=== PATIENT | female | born 1945 | race Two or more races ===

== ENCOUNTER 2016-10-21 13:45 | Outpatient (CLI) | payer MEDICARE, OTHER ==
[~2016-10-21 13:45] MED LIST: ACTOS15 MG PO; ATORVASTATIN CA10 MG PO; COZAAR25 MG PO; EVISTA60 MG PO; LANTUS100 UNIT/2 SQ; LEXAPRO20 MG PO; NOVOLOG100 UNIT/3 SUBQ; SYNTHROID25 MCG PO; TRAZODONE HCL50 MG PO; VICTOZA 2-0.6 MG/0.1 SUBQ; VICTOZA SUBQ; VITAMIN D250000 UNI1 ORAL; VITAMIND PO
[2016-10-21] MEDS ORDERED: NATEGLINIDE120 MG PO (14:58)
[2016-10-21] MEDS ORDERED: INVOKANA100 MG PO (14:58)
[2016-10-21] MEDS ORDERED: LEXAPRO10 MG ORAL (14:58)
[2016-10-21] MEDS ORDERED: METOPROLOL SUCC50 MG ORAL (14:58)
[2016-10-21] MEDS ORDERED: PRAVACHOL40 MG ORAL (14:58)
[2016-10-21] MEDS ORDERED: COQ-10100 M1 PO (14:58)
[2016-10-21] MEDS ORDERED: PAZEO2.5 ML OP (14:58)
[2016-10-21] MEDS ORDERED: EVISTA60 MG ORAL (14:58)
[2016-10-21] MEDS ORDERED: SYNTHROID125 MCG ORAL (14:58)
[2016-10-21] MEDS ORDERED: NOVOLOG100 UNIT/3 SUBQ (14:58)
[2016-10-21] MEDS ORDERED: VOLTAREN100 G1 TP (14:58)
[2016-10-21] MEDS ORDERED: DEXILANT60 MG ORAL (14:58)
[2016-10-21] MEDS ORDERED: LANTUS SOL100 UNIT/1 SUBQ (14:58)
[2016-10-21] MEDS ORDERED: ACETAMINOPHEN325 M1 ORAL (14:58)
[2016-10-21] MEDS ORDERED: TRAZODONE HCL100 MG ORAL (14:58)
--- NOTE | 2016-10-21 15:02 | GI Initial Consult Note ---
MiguelNancy Helio N.PDylan 10/21/16 1502: History of Present Illness General Date patient seen: October 21, 2016 Time patient seen: 14:00 Referring physician: AMALIA Reason for Consultation: ABDOMINAL PAIN Present Illness HPI 71 year old female patient referred by Dr. Chahal for evaluation of abdominal pain and GERD. The patient was recently discharged from [facility] last week for hematemesis and acute onset of chest pain. Her work up with a CT scan noted to have a very large intraluminal esophageal mass which was found to be a large hematoma extending from the upper esophageal sphincter all the way down tot he lower esophageal sphincter. The patient was placed on TPN and eventually the hematoma resolved on its own verified by EGD. Biopsy shows the presence of H. Pylori and we are unsure if it has been treated. Home Meds Reported Medications Escitalopram Oxalate (LEXAPRO) 5 Mg/5 Ml Solution, 15 MG ORAL DAILY, ML 10/21/16 Ubidecarenone (COQ-10) 100 Mg Capsule, 200 MG PO, CAP 10/21/16 Trazodone Hcl* (DESYREL*) 100 Mg Tablet, 100 MG ORAL BEDTIME, TAB 10/21/16 Pravastatin Sodium (PRAVACHOL) 40 Mg Tablet, 40 MG ORAL BEDTIME, TAB 10/21/16 Olopatadine HCl (Pazeo) 2.5 Ml Drops, 2.5 ML OP, ML 10/21/16 Nateglinide (NATEGLINIDE) 120 Mg Tablet, 120 MG PO, TAB 10/21/16 Metoprolol Succinate* (METOPROLOL SUCCINATE*) 50 Mg Tab.er.24h, 50 MG ORAL DAILY , TAB 10/21/16 Levothyroxine Sodium* (SYNTHROID*) 125 Mcg Tablet, 137 MCG ORAL DAILY, TAB Take in the morning on an empty stomach, at least 30 minutes before food. 10/21/16 Insulin Aspart* (NOVOLOG*) 100 Unit/1 Ml Insuln.pen, 0 SUBQ, #1 EA 0 Refills 10/21/16 Diclofenac Sodium (VOLTAREN) 100 Gm Gel..gram., 100 GM TP, GM 10/21/16 Dexlansoprazole (Dexilant) 60 Mg [place]., 60 MG ORAL DAILY, CAP 10/21/16 Canagliflozin (INVOKANA) 100 Mg Tablet, 100 MG PO, TAB 10/21/16 Acetaminophen* (ACETAMINOPHEN 325MG TABLET*) 325 Mg Tablet, 325 MG ORAL Q4H Y, TAB 10/21/16 Insulin Glargine,Hum.rec.anlog (LANTUS) 100 Unit/1 Ml Cartridge, 12 UNIT SQ QHS 08/18/12 Insulin Aspart* (NOVOLOG*) 100 Unit/1 Ml Insuln.pen, 6 SUBQ BID, UNITS Inject subcutaneously per sliding scale order 08/18/12 Discontinued Reported Medications Raloxifene Hcl* (EVISTA*) 60 Mg Tablet, 60 MG ORAL DAILY, TAB 10/21/16 Insulin Glargine (LANTUS) 100 Unit/1 Ml Insuln.pen, 0 SUBQ BEDTIME, #1 EA 0 Refills 10/21/16 Escitalopram Oxalate* (LEXAPRO*) 10 Mg Tablet, 15 MG ORAL DAILY, TAB 10/21/16 Ergocalciferol (Vitamin D2)* (VITAMIN D*) 50,000 Unit Capsule, 36812 UNIT ORAL QWEEK 08/18/12 Liraglutide (VICTOZA 2-MADISYN) 0.6 Mg/0.1 Ml Pen.injctr, 1.8 MG SUBQ DAILY 08/18/12 Atorvastatin Calcium* (LIPITOR*) 10 Mg Tablet, 10 MG PO QHS 08/18/12 Trazodone Hcl* (DESYREL*) 50 Mg Tablet, 50 MG PO QHS 08/18/12 Escitalopram Oxalate* (LEXAPRO*) 20 Mg Tablet, 20 MG PO DAILY, #10 TAB Take 1 tablet by mouth every day. 08/18/12 Raloxifene Hcl* (EVISTA*) 60 Mg Tablet, 60 MG PO DAILY 08/18/12 Med list reviewed/reconciled: Yes Allergies: Coded Allergies: No Known Allergies (Unverified , 08/17/12) Patient History Family History Narrative PAST MEDICAL HISTORY: The patient's past medical history and review of systems are remarkable for insulin dependent diabetes mellitus, osteoporosis, hypothyroidism and depression. No history of hypertension, stroke, seizures or renal failure. No GI bleeding, no hepatitis PAST SURGICAL HISTORY: Appendectomy, right eye cataract and hysterectomy. Social History: Denies: alcohol use, drug use, other, smoking Review of Systems All Other Systems: negative except mentioned in HPI Physical Exam T 97.6 BP 108/54 P 75 99 RA WT 149.3 lbs (states 10 lbs loss during previous hospital admission, has gained now) Sp02 EP Interpretation: reviewed General Appearance: well appearing, no apparent distress, alert Head: normocephalic EENT: normal ENT inspection Neck: full range of motion Respiratory: normal breath sounds, no respiratory distress Cardiovascular: normal rate Gastrointestinal: normal inspection, non tender, soft Genitourinary: no CVA tenderness Musculoskeletal: back normal Neurologic: normal inspection, alert, oriented x3, responsive Psychiatric: normal inspection, judgement/insight normal, memory normal Skin: normal inspection, normal color, no rash, warm/dry Lymphatic: normal inspection, no adenopathy GI: Plan Problems: (1) Intramural esophageal hematoma (2) H. pylori infection (3) GERD (gastroesophageal reflux disease) (4) Abdominal pain Plan s/p EGD @ [facility] >> resolved esophageal hematoma ordered Breath Test rx low dose erythromycin RTC x 2 weeks, patient will contact refused colonoscopy at this time Seen with Dr. Flores. Thank you for referring this patient. AMILCAR FLORES 10/22/16 1044: History of Present Illness Present Illness Home Meds Reported Medications Escitalopram Oxalate (LEXAPRO) 5 Mg/5 Ml Solution, 15 MG ORAL DAILY, ML 10/21/16 Ubidecarenone (COQ-10) 100 Mg Capsule, 200 MG PO, CAP 10/21/16 Trazodone Hcl* (DESYREL*) 100 Mg Tablet, 100 MG ORAL BEDTIME, TAB 10/21/16 Pravastatin Sodium (PRAVACHOL) 40 Mg Tablet, 40 MG ORAL BEDTIME, TAB 10/21/16 Olopatadine HCl (Pazeo) 2.5 Ml Drops, 2.5 ML OP, ML 10/21/16 Nateglinide (NATEGLINIDE) 120 Mg Tablet, 120 MG PO, TAB 10/21/16 Metoprolol Succinate* (METOPROLOL SUCCINATE*) 50 Mg Tab.er.24h, 50 MG ORAL DAILY , TAB 10/21/16 Levothyroxine Sodium* (SYNTHROID*) 125 Mcg Tablet, 137 MCG ORAL DAILY, TAB Take in the morning on an empty stomach, at least 30 minutes before food. 10/21/16 Insulin Aspart* (NOVOLOG*) 100 Unit/1 Ml Insuln.pen, 0 SUBQ, #1 EA 0 Refills 10/21/16 Diclofenac Sodium (VOLTAREN) 100 Gm Gel..gram., 100 GM TP, GM 10/21/16 Dexlansoprazole (Dexilant) 60 Mg Cap.bp, 60 MG ORAL DAILY, CAP 10/21/16 Canagliflozin (INVOKANA) 100 Mg Tablet, 100 MG PO, TAB 10/21/16 Acetaminophen* (ACETAMINOPHEN 325MG TABLET*) 325 Mg Tablet, 325 MG ORAL Q4H Y, TAB 10/21/16 Insulin Glargine,Hum.rec.anlog (LANTUS) 100 Unit/1 Ml Cartridge, 12 UNIT SQ QHS 08/18/12 Insulin Aspart* (NOVOLOG*) 100 Unit/1 Ml Insuln.pen, 6 SUBQ BID, UNITS Inject subcutaneously per sliding scale order 08/18/12 Discontinued Reported Medications Raloxifene Hcl* (EVISTA*) 60 Mg Tablet, 60 MG ORAL DAILY, TAB 10/21/16 Insulin Glargine (LANTUS) 100 Unit/1 Ml Insuln.pen, 0 SUBQ BEDTIME, #1 EA 0 Refills 10/21/16 Escitalopram Oxalate* (LEXAPRO*) 10 Mg Tablet, 15 MG ORAL DAILY, TAB 10/21/16 Ergocalciferol (Vitamin D2)* (VITAMIN D*) 50,000 Unit Capsule, 33699 UNIT ORAL QWEEK 08/18/12 Liraglutide (VICTOZA 2-MADISYN) 0.6 Mg/0.1 Ml Pen.injctr, 1.8 MG SUBQ DAILY 08/18/12 Atorvastatin Calcium* (LIPITOR*) 10 Mg Tablet, 10 MG PO QHS 08/18/12 Trazodone Hcl* (DESYREL*) 50 Mg Tablet, 50 MG PO QHS 08/18/12 Escitalopram Oxalate* (LEXAPRO*) 20 Mg Tablet, 20 MG PO DAILY, #10 TAB Take 1 tablet by mouth every day. 08/18/12 Raloxifene Hcl* (EVISTA*) 60 Mg Tablet, 60 MG PO DAILY 08/18/12 Allergies: Coded Allergies: No Known Allergies (Unverified , 08/17/12) GI: Plan Plan The patient was seen and examined at bedside and all new and available data was reviewed in the patients chart. I agree with the above findings, impression and plan. (Patient seen earlier today. Signature stamp does not reflect patient encounter time.). -Mitzy Romo MDh Helio Zapien October 21, 2016 15:02 AMILCAR FLORES October 22, 2016 10:44
[2016-10-21] MEDS ORDERED: LEXAPRO5 MG/5 ML ORAL (16:08)
== END 2016-10-21 14:47 | disposition home or self-care (01) ==
LOC: PAN 13:45
DX: S27.812A Contusion of esophagus (thoracic part), initial encounter (principal); A04.8 Other specified bacterial intestinal infections; K21.9 Gastro-esophageal reflux disease without esophagitis; R10.9 Unspecified abdominal pain; X58.XXXA Exposure to other specified factors, initial encounter; Y93.9 Activity, unspecified; Y92.9 Unspecified place or not applicable; Z90.89 Acquired absence of other organs; Z90.710 Acquired absence of both cervix and uterus; E11.9 Type 2 diabetes mellitus without complications; M81.0 Age-related osteoporosis without current pathological fracture; Z79.4 Long term (current) use of insulin
CPT/HCPCS: 83013; 83014; G0463; 99201